=== PATIENT | female | born 1965 | race Two or more races ===

== ENCOUNTER 2021-11-26 11:35 | Emergency (ER) | payer BC ==
[~2021-11-26] VITALS: Ht 170.2 cm; Wt 63.5 kg
--- NOTE | 2021-11-26 11:43 | NUR ---
BIBS C/O CHEST PAIN STARTED YESTERDAY AFTER EATING A PIECE OF SAUSAGE. PT DESCRIBED THE PAIN TIGHTNESS THAT RADIATES TO HER THROAT. ATTACHED TO MONITOR, VITALS ARE WITHIN NORMAL LIMITS, NO RESP DISTRESS NOTED. DR VIERA AT BEDSIDE, AWAITING MD ORDERS.
[2021-11-26] MEDS ORDERED: MAG HYDROX/AL HYDROX/SIMETH 30 ML UDC ONE (11:56)
[2021-11-26] MEDS ORDERED: LIDOCAINE VISCOUS 2% UD 15 ML UDC ONE (11:56)
[2021-11-26] MEDS ORDERED: ASPIRIN 325 MG TABLET PO ONE (12:00)
[2021-11-26] MEDS ORDERED: NITROGLYCERIN 0.4 MG/TAB BOTTLE SL ONE (12:00)
[2021-11-26] MEDS ORDERED: LIDOCAINE VISCOUS 2% UD 15 ML UDC MM ONE (12:00)
[2021-11-26] MEDS ORDERED: MAG HYDROX/AL HYDROX/SIMETH 30 ML UDC PO ONE (12:00)
--- NOTE | 2021-11-26 12:07 | NUR ---
X RAY AT BEDSIDE
--- NOTE | 2021-11-26 12:49 | NUR ---
Patient discharged to home in stable condition. Written and verbal after care instructions given. Patient verbalizes understanding of instruction.
[2021-11-26 12:50] VITALS: BP 144/84
== END 2021-11-26 12:50 | disposition home or self-care (01) ==
LOC: ER 11:43
DX: R07.89 Other chest pain (principal)
CPT/HCPCS: 71045-TC